=== PATIENT | female | born 1995 | race African-American/Black ===

== ENCOUNTER 2021-03-17 22:11 | Emergency (ER) | payer OTHER, MEDICAID ==
[~2021-03-17] VITALS: Ht 162.6 cm; Wt 81.7 kg
[2021-03-17] MEDS ORDERED: ROBITUSSIN10 MG PO (22:17)
[2021-03-17] MEDS ORDERED: ENBRACE HR SOF1 EACH PO (22:18)
[2021-03-17 22:37] LABS: ABSOLUTE LYMPHOCYTES 1.1 thou/uL (0.8-5.3); ABSOLUTE MONOCYTES 0.5 thou/uL (0.0-1.2); ABSOLUTE NEUTROPHILS 3.4 thou/uL (1.6-8.1); BASOPHILS 0.3 %; EOSINOPHILS 0.1 %; HEMOGLOBIN 12.7 gm/dL (12.0-15.0); LYMPHOCYTES 22.2 %; MCH 31.5 pg (26.0-34.0); MCHC 34.2 g/dL (28.0-37.0); MCV 92.1 fL (80.0-100.0); MONOCYTES 9.2 %; NUCLEATED RBCS 0 /100WBC; PLATELET COUNT* 226 thou/uL (150-400); POLYS 68.2 %; RBC 4.02 mil/uL (4.20-5.00); RDW-CV 12.9 % (10.5-14.5); URINE BILIRUBIN NEGATIVE (Negative); URINE BLOOD NEGATIVE (Negative); URINE CLARITY CLEAR; URINE COLOR YELLOW; URINE GLUCOSE-RANDOM NEGATIVE (Negative); URINE KETONES NEGATIVE (Negative); URINE LEUKOCYTES-REFLEX 1+ (Negative); URINE NITRITE-REFLEX NEGATIVE (Negative); URINE PROTEIN TRACE (Negative); URINE SPECIFIC GRAVITY 1.015 (1.005-1.030); WBC 4.9 thou/uL (4.0-11.0)
[2021-03-17 22:40] LABS: CALCIUM 8.8 mg/dL (8.5-10.1); CREATININE 0.7 mg/dL (0.6-1.3); POTASSIUM 3.7 mmol/L (3.5-5.1)
[2021-03-17 22:44] LABS: SQUAMOUS >10 Many /LPF (0-3); TRANSITIONAL EPITHEL CELL 0-3 Few /LPF (None Seen)
[2021-03-17 22:45] LABS: BACTERIA-REFLEX >30 Many /HPF (None Seen); CASTS None Seen /LPF (None Seen); CRYSTALS None Seen /LPF (None Seen); MUCUS 0-3 Light strn/LPF (None Seen); URINE RBC 3-10 Few /HPF (0-2); URINE WBC-REFLEX 6-15 Few /HPF (0-5)
[2021-03-18] MEDS ORDERED: HYDROCODON-ACE1 EAC8 PO (01:38)
[2021-03-18] MEDS ORDERED: PROAIR HFA8.5 GM INH (01:38)
[2021-03-18] MEDS ORDERED: PHENERGAN 25 MG25 M1 PO (01:38)
[2021-03-18 02:13] VITALS: BP 122/66
--- NOTE | 2021-03-19 09:21 | EKG ---
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
== END 2021-03-18 02:13 | disposition home or self-care (01) ==
LOC: M.ERS 22:11
PROVIDERS: Emergency Medicine
DX: U07.1 COVID-19 (principal); J12.82 Pneumonia due to coronavirus disease 2019; N39.0 Urinary tract infection, site not specified; Z79.899 Other long term (current) drug therapy